=== PATIENT | female | born 1965 | race Two or more races ===

== ENCOUNTER 2022-06-20 09:41 | Emergency (ER) | payer MEDICAID ==
[~2022-06-20] VITALS: Ht 160 cm; Wt 82.0 kg
[2022-06-20 10:17] LABS: BASOPHILS % 0.2 % (0.0-2.0); EOSINOPHILS % 0.1 % (0.0-5.0); HEMATOCRIT. 37.5 % (36.0-48.0); HEMOGLOBIN. 12.8 g/dL (12.0-16.0); LYMPHOCYTES % 9.2 % (20.0-50.0); MEAN CORPUSCULAR HEMOGLOBIN 29.1 pg (28.0-32.0); MEAN CORPUSCULAR VOLUME 84.9 fL (81.0-99.0); MEAN PLATELET VOLUME 8.8 fl (7.4-10.4); MONOCYTES % 6.6 % (2.0-8.0); NEUTROPHILS % 83.9 % (40.0-76.0); PLATELET 194 x1000/uL (130-400); RED BLOOD CELL COUNT 4.41 mill/uL (4.2-5.4); RED CELL DISTRIBUTION WIDTH 14.4 % (11.6-14.6)
[2022-06-20 10:30] LABS: CHLORIDE 108 mEq/L (98-107)
[2022-06-20] MEDS ORDERED: KETOROLAC 30MG/ML VIAL IV STA (11:02)
[2022-06-20] MEDS ORDERED: SODIUM CHLORIDE 0.9% 1,000 ML IV ONE (11:15)
[2022-06-20 11:53] LABS: CLARITY URINE CLOUDY (CLEAR); COLOR URINE ORANGE (YELLOW); KETONES URINE NEGATIVE (NEGATIVE); LEUKOCYTE ESTERASE URINE 3+ (NEGATIVE); NITRITE URINE POSITIVE (NEGATIVE); OCCULT BLOOD URINE TRACE (NEGATIVE); PH URINE 5.5 (4.5-8.0); PROTEIN URINE 3+ (NEGATIVE); SPECIFIC GRAVITY URINE 1.026 (1.005-1.030)
[2022-06-20] MEDS ORDERED: CEPH500C2 MT (12:10)
[2022-06-20] MEDS ORDERED: ONDA4TAB50 MT (12:11)
[2022-06-20] MEDS ORDERED: CEFTRIAXONE 2GM/50ML (ADDEASE) 50 ML IV ONE (12:15)
[2022-06-20 14:20] VITALS: BP 159/93
== END 2022-06-20 14:23 | disposition home or self-care (01) ==
LOC: ER 09:50
DX: Z90.49 Acquired absence of other specified parts of digestive tract (principal); I10 Essential (primary) hypertension; N39.0 Urinary tract infection, site not specified
CPT/HCPCS: 36415; 71045; 80053; 81003; 83690; 85025; 87086; 93005; 96361; 96365; 96375; 99285; J0696; J1885; J7030; Z7610

== ENCOUNTER 2023-01-15 13:54 | Emergency (ER) | payer MEDICAID, OTHER ==
[~2023-01-15] VITALS: Ht 165.1 cm; Wt 82.0 kg
[~2023-01-15 13:54] MED LIST: CEPH500C2 MT; ONDA4TAB50 MT
[2023-01-15 14:16] VITALS: BP 169/85; PULSE 104; RESP 18; TEMP 99.9; O2SAT 100
[2023-01-15 14:37] LABS: CLARITY URINE CLEAR (CLEAR); COLOR URINE YELLOW (YELLOW); GLUCOSE URINE NEGATIVE (NEGATIVE); KETONES URINE NEGATIVE (NEGATIVE); LEUKOCYTE ESTERASE URINE NEGATIVE (NEGATIVE); NITRITE URINE NEGATIVE (NEGATIVE); OCCULT BLOOD URINE NEGATIVE (NEGATIVE); PROTEIN URINE 2+ (NEGATIVE); SPECIFIC GRAVITY URINE 1.015 (1.005-1.030)
[2023-01-15 14:39] LABS: BACTERIA URINE NONE SEEN; RBC URINE 0-2 /hpf (0-2); SQUAMOUS EPITHELIAL CELL URINE NONE SEEN /lpf (RARE/1+); WBC URINE 0-2 /hpf (0-2); YEAST URINE NONE SEEN
[2023-01-15 15:21] LABS: BASOPHILS % 0.3 % (0.0-2.0); EOSINOPHILS % 0.4 % (0.0-5.0); HEMATOCRIT. 40.9 % (36.0-48.0); HEMOGLOBIN. 13.5 g/dL (12.0-16.0); LYMPHOCYTES % 24.8 % (20.0-50.0); MEAN CORPUSCULAR HEMOGLOBIN 28.2 pg (28.0-32.0); MEAN CORPUSCULAR HGB CONC 32.9 g/dL (31.0-37.0); MEAN CORPUSCULAR VOLUME 85.7 fL (81.0-99.0); MEAN PLATELET VOLUME 9.6 fl (7.4-10.4); MONOCYTES % 14.6 % (2.0-8.0); NEUTROPHILS % 59.9 % (40.0-76.0); PLATELET 182 x1000/uL (130-400); RED BLOOD CELL COUNT 4.77 mill/uL (4.2-5.4); RED CELL DISTRIBUTION WIDTH 14.8 % (11.6-14.6); WHITE BLOOD COUNT 4.8 x1000/uL (4.5-11.0)
[2023-01-15 15:25] LABS: CHLORIDE 108 mEq/L (98-107); INDEX HEMOLYSI 1 (1-3); INDEX ICTERIC 1 (1-4); INDEX LIPEMIC 1 (1-3); POTASSIUM 3.9 mEq/L (3.5-5.1); SODIUM 139 mEq/L (136-145)
[2023-01-15 15:34] LABS: ALANINE AMINOTRANSFERASE 62 IU/L (13-61); ALBUMIN 3.6 g/dL (3.4-5.0); ASPARTATE AMINOTRANSFERASE 57 IU/L (15-37); BILIRUBIN TOTAL 0.8 mg/dL (0.1-1.0); CALCIUM 8.8 mg/dL (8.5-10.1); CARBON DIOXIDE 27 mEq/L (21-32); CREATININE 0.9 mg/dL (0.6-1.3); GLUCOSE 88 mg/dL (70-105); PROTEIN TOTAL 8.1 g/dL (6.0-8.3); TROPONIN I HIGH SENSITIVITY 17 ng/L (<54); UREA NITROGEN BLOOD 11 mg/dL (7-21)
[2023-01-15] MEDS ORDERED: ONDANSETRON 4MG ODT PO ONE (16:45)
[2023-01-15] MEDS ORDERED: BENZONATATE 200MG CAPSULE PO ONE (16:45)
[2023-01-15] MEDS ORDERED: ONDANSETRON 4MG ODT PO NR (19:03)
[2023-01-16] MEDS ORDERED: DEXAMETHASONE 4MG/ML 1ML VIAL ONE (09:39)
[2023-01-16] MEDS ORDERED: LIDOCAINE HCL 1% 10 MG/ML 10ML VIAL ONE (09:39)
[2023-01-16] MEDS ORDERED: ONDANSETRON HCL 4MG/2ML INJ ONE (09:39)
[2023-01-16] MEDS ORDERED: PROPOFOL 200MG/20ML VIAL IV ONE (09:40)
[2023-01-16] MEDS ORDERED: FENTANYL CITRATE/PF 50MCG/ML 2ML VIAL ONE ×2 (09:40→10:05)
[2023-01-16] MEDS ORDERED: MIDAZOLAM HCL 2 MG/2 ML VIAL ONE ×2 (09:40→10:05)
== END 2023-01-15 19:36 | disposition home or self-care (01) ==
LOC: ER 13:54
DX: R11.2 Nausea with vomiting, unspecified (principal); R05.9 Cough, unspecified; R51.9 Headache, unspecified; I10 Essential (primary) hypertension; Z90.49 Acquired absence of other specified parts of digestive tract; Z98.890 Other specified postprocedural states
CPT/HCPCS: 99284; 87426; 80053; 81003; 83690; 85025; 84484; 36415; 93005; J3010; Q0162; J1100; J3490; J2250; J2405; J2704; C9803